=== PATIENT | female | born 1990 | race American Indian/Alaskan Native ===

== ENCOUNTER 2018-09-10 14:22 | Emergency (ER) | payer OTHER ==
--- NOTE | 2018-09-10 14:44 | Event Note ---
ED Screening Note Date of service: 09/10/18 Time: 14:40 ED Screening Note: This is a 27 y.o. F. that presents to the ER with congestion, headache, chills, and coryza. Occasional marijuana smoker LMP 08/23/2018 Taking cold and flu medicine. Denies chest pain, sob, n/v, or weakness This initial assessment/diagnostic orders/clinical plan/treatment(s) is/are subject to change based on patients health status, clinical progression and re- assessment by fellow clinical providers in the ED. Further treatment and workup at subsequent clinical providers discretion. Patient/guardian urged not to elope from the ED as their condition may be serious if not clinically assessed and managed. Initial orders include:
[2018-09-10 14:45] VITALS: BP 109/71
[2018-09-10] MEDS ORDERED: DELTASONE PO ONE (15:41)
[2018-09-10] MEDS ORDERED: ROBITUSSIN PO ONE (15:41)
[2018-09-10] MEDS ORDERED: TYLENOL PO ONE (15:41)
--- NOTE | 2018-09-10 16:03 | Emergency Department Report ---
Minor Respiratory - HPI Chief Complaint: Upper Respiratory Infection Stated Complaint: CONGESTION Time Seen by Provider: 09/10/18 14:40 Duration: Today Pain Location: Facial, Throat, Nose Severity: moderate Minor Respiratory: Yes Rhinorrhea, Yes Sore Throat, Yes Able to Tolerate Fluids, Yes Cough, No Ear Pain, No Sick Contacts, No Hemoptysis, No Chest Pain, No Shortness of Breath, No Fever Other History: Cough, sore throat and body aches for the past 2 days. Patient states she has no relief with [id number] medication. Patient states she is intermittently sneezing, sore throat, coughing. She denies fevers/chills/nausea vomiting/abdominal pain This is a 27-year-old female who presents to ED complaining of ED Review of Systems ROS: Stated complaint: CONGESTION Other details as noted in HPI Comment: All other systems reviewed and negative ED Past Medical Hx - Social History Smoking Status: Current Some Day Smoker Substance Use Type: Marijuana - Medications Home Medications: Home Medications Medication Instructions Recorded Confirmed Last Taken Type Ibuprofen [Motrin] 800 mg PO Q8HR #20 tablet 09/10/18 Unknown Rx guaiFENesin ER [Mucinex ER] 600 mg PO Q12H #10 tablet.er 09/10/18 Unknown Rx guaiFENesin [Robitussin] 200 mg PO TID #80 ml 09/10/18 Unknown Rx Minor Respiratory Exam - Exam General: Vital signs noted. No distress. Alert and acting appropriately. HEENT: Yes Moist Mucous Membranes, No Pharyngeal Erythema, No Pharyngeal Exudates, No Rhinorrhea, No Conjuctival Injection, No Frontal Tenderness, No Maxillary Tenderness Ear: Neither TM Bulge, Neither TM Erythema, Neither EAC Pain, Neither EAC Discharge Neck: Yes Supple, No Adenopathy Lungs: Yes Good Air Exchange, No Wheezes, No Ronchi, No Stridor, No Cough, No Labored Respirations, No Retractions, No Use of Accessory Muscles, No Other Abnormal Lung Sounds Heart: Yes Regular, No Murmur Abdomen: Yes Normal Bowel Sounds, No Tenderness, No Peritoneal Signs Skin: No Rash, No Edema Neurologic: Alert and oriented, no deficits. Musculoskeletal: Unremarkable. ED Course Vital Signs 09/10/18 14:42 Temperature 99.5 F Pulse Rate 101 H Respiratory 20 Rate Blood Pressure 109/71 O2 Sat by Pulse 100 Oximetry ED Medical Decision Making - Medical Decision Making 27-year-old female presents with flulike symptoms. Patient received Tylenol, prednisone and Robitussin during ED stay. Discussed with patient symptomatic relief with [id number] medications. Discussed continue Tylenol and Motrin as needed for fever and pain. Discussed increase fluids and diet intake. Discussed rest much needed. Discussed daily vitamin C for immune booster. Discussed follow-up with the care care physician in 3-5 days. Patient's mother verbally states she understands and will comply the following instructions and follow-up Vital signs stable. Patient is in no acute distress Critical care attestation.: If time is entered above; I have spent that time in minutes in the direct care of this critically ill patient, excluding procedure time. ED Disposition Clinical Impression: Upper respiratory infection Disposition: DC- TO HOME OR SELFCARE Is pt being admited?: No Does the pt Need Aspirin: No Condition: Stable Instructions: Upper Respiratory Infection (ED) Additional Instructions: Make sure to follow up with the primary care physician as discussed. Take all your medications as you've been prescribed. If you have any worsening symptoms or develop new symptoms please return to ED immediately. Prescriptions: Ibuprofen [Motrin] 800 mg PO Q8HR #20 tablet guaiFENesin ER [Mucinex ER] 600 mg PO Q12H #10 tablet.er guaiFENesin [Robitussin] 200 mg PO TID #80 ml Referrals: [facility] [Outside] - 3-5 Days [facility] [Outside] - 3-5 Days Forms: Accompanied Note, Work/School Release Form(ED)
== END 2018-09-10 16:46 | disposition home or self-care (01) ==
LOC: ED 14:22
DX: J06.9 Acute upper respiratory infection, unspecified (principal); F17.200 Nicotine dependence, unspecified, uncomplicated; F12.10 Cannabis abuse, uncomplicated
CPT/HCPCS: 99282; J7512